=== PATIENT | female | born 1990 ===

== ENCOUNTER 2020-01-27 05:42 | Inpatient (IN) ==
--- NOTE | 2020-01-26 15:49 | History & Physical Report ---
Date of Service January 26, 2020 Assessment & Plan (1) : Repeat section. Reviewed consent. Questions answered. Discussed plans with Luis Garcia&Jamaica Wet Wheeler - adoptive parents will plan to room-in for baby. History of Present Illness Chief Complaint: repeat Primary Care Provider: SHERWIN PCP 30yo @ 39 08/12, repeat . H/o C/S x 2. 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 SAMUELS AND DR. PHAN OR DR. WOLFF ASSIST. Flu shot given 07/06/19 [facility] Allergies Allergy/AdvReac Type Severity Reaction Status Date / Time No Known Allergies Allergy Verified 01/26/20 15:30 Home Medications Home Medications Medication Instructions Recorded Confirmed Type prenat.vits,swapnil,izl-[id number]-rdoja 1 tab PO BID 06/29/19 01/26/20 History valacyclovir 500 mg tablet 500 mg PO DAILY #30 tab 01/09/20 01/26/20 Rx Patient History Medical History History of anxiety History of chicken pox History of depression Hx of cold sores Restless leg syndrome DURING Scoliosis "SLIGHT" Surgical History S/P section X 2 () Family History Father Heart disease Hypertension Aunt Breast cancer Social History Smoking Status: Former smoker Second Hand Exposure: No; Hx Alcohol Use: No Hx Substance Use: No Preferred Language: Japanese Parts Person Required: No Beliefs That Will Affect Care: None marital status: Single marital status details: Maurilio Lopez (28) [phone] Current Living Situation: Family Current Living Situation Comment: lives with 2 sons, sister, cats-sister changing litter, patient to wear tee current occupational status: employed current occupation: [employer] Feels Safe at Home: Yes Review of Systems All systems reviewed & are unremarkable except as noted in HPI & below Physical Exam Constitutional: WD/WN, vitals as above Respiratory: normal respiratory effort, lungs clear to auscultation no respiratory distress Cardiovascular: Rate/Rhythm: regular rate and regular rhythm Gastrointestinal (Abdomen): Inspection/Auscultation: abdomen normal to inspection Percussion/Palpation: abdomen soft; abdomen nontender Gravid. No s/s chorio or abruption. Skin: no rashes, warm and dry Psychiatric: A+Ox3, euthymic affect Coding Level of Care Code None Diagnoses Z34.90
[~2020-01-27 05:42] MED LIST: CITRIC ACID/SODIUM CITRATE 15 ML UDC PO ONE; LACTATED RINGER'S 1,000 ML IV ONE
[2020-01-27] MEDS ORDERED: LACTATED RINGER'S 1,000 ML IV SCH ×2 (06:00→09:26)
[2020-01-27] MEDS ORDERED: CEFAZOLIN 2000MG 2,000 MG/15 ML SYR IV SCH (06:00)
[2020-01-27 06:10] LABS: Basophils # (auto) 0.01 K/uL (0-0.2); Basophils % (auto) 0.1 %; Eosinophils # (auto) 0.24 K/uL (0-0.5); Eosinophils % (auto) 2.9 %; Hemoglobin 10.9 g/dL (12.0-16.0); Immature Granulocytes # (auto) 0.07 K/uL (0.00-0.02); Immature Granulocytes % (auto) 0.9 %; Lymphocytes # (auto) 2.08 K/uL (1.2-3.4); Lymphocytes % (auto) 25.3 %; Mean Corpuscular Hemoglobin 26.5 pg (25-34); Mean Corpuscular Volume 82.5 fL (80-100); Mean Platelet Volume 9.3 fL (7.4-10.4); Monocytes # (auto) 0.71 K/uL (0.11-0.59); Monocytes % (auto) 8.6 %; Neutrophils % (auto) 62.2 %; Platelet Count 302 K/uL (130-400); RDW Coefficient of Variation 14.5 % (11.5-14.5); RDW Standard Deviation 43.4 fL (36.4-46.3); Red Blood Count 4.12 M/uL (4.2-5.4); White Blood Count 8.21 K/uL (4.8-10.8)
[2020-01-27 06:17] LABS: Mean Corpuscular Hgb Conc 32.1 g/dL (32-36)
--- NOTE | 2020-01-27 07:23 | Anesthesiology Consultation ---
Date of Service January 27, 2020 Assessment & Plan Chart Review Chart Review: Acceptable Risk for Surgery and Patient NOT seen in Pre Admission Testing Consults Requested none ASA ASA2 Proposed Anesthesia Anesthesia Type: Labor Epidural Risk / Benefits Reviewed With: PT / POA / Parent / Guardian, Accepts Plan and Informed Consent Obtained Additional Comments: covid test neg. History Surgery Operation Date: 01/27/20 07:30 Proposed Procedures p Section in - Krissy Samuels, Height/Weight Height: 5 ft 3 in Weight: 86.636 kg Allergies Allergy/AdvReac Type Severity Reaction Status Date / Time No Known Allergies Allergy Verified 01/26/20 15:30 Medications Home Medications Medication Instructions Recorded Confirmed Last Taken prenat.vits,swapnil,udz-nqnj-bqlcw 1 tab PO BID 06/29/19 01/26/20 Unknown valacyclovir 500 mg tablet 500 mg PO DAILY #30 tab 01/09/20 01/26/20 Unknown Active Medications Generic Name Dose Route Start Last Admin Trade Name Freq PRN Reason Stop Dose Admin Lactated Ringer's 1,000 mls @ 125 mls/hr 01/27/20 06:00 01/27/20 06:22 Lr IV 01/27/20 13:59 999 mls/hr .Q8H FABIO Administration NPO Date Last Intake of Fluids: 01/27/20 Time Last Intake of Fluids: 23:30 Date Last Intake of Solids: 01/27/20 Time Last Intake of Solids: 21:30 Past Medical History Medical History History of anxiety History of chicken pox History of depression Hx of cold sores Restless leg syndrome DURING Scoliosis "SLIGHT" Exercise / Class Metabolic Activity II 4-5 Yardwork/Stairs/Walk up hill Past Family History Family History Father Heart disease Hypertension Aunt Breast cancer Past Surgical History Surgical History S/P section X 2 () Past Anesthesia History No Hx of Anesthesia Complications and No Family Hx of Anesthesia Complications History of PONV No Hx of PONV and No Hx of Motion Sickness Social History Smoking Status: Never smoker tobacco type: cigarettes Do You Dip or Chew Tobacco: No Smoking End Date: 2018 FOR 1 YEAR (MINIMAL USE) Hx Alcohol Use: No Hx Substance Use: No Physical Exam Vital Signs Last Vital Signs Temp 36.5 C 01/27/20 05:50 Pulse 73 01/27/20 07:01 Resp 18 01/27/20 05:50 BP 106/65 01/27/20 07:01 Constitutional + obese ENMT Mouth: no dentition abnormality Thyromental Distance: < 3.5 Finger Breadths Mallampati Class: II Neck normal visual inspection and trachea midline; neck extension not limited Respiratory normal respiratory effort Auscultation: lungs clear to auscultation bilaterally Cardiovascular Rate/Rhythm: regular rate and regular rhythm Heart Sounds: no murmur Vessels: no carotid bruit Musculoskeletal Spine: + scoliosis; normal cervical ROM Neurologic moves all extremities Motor/Sensory: no sensory deficit Psychiatric Orientation: alert and oriented x 3 Testing Laboratory Results 01/27/20 05:56 Blood Type O Positive 01/27/20 05:56 Antibody Screen NEGATIVE 01/27/20 05:56
[2020-01-27] MEDS ORDERED: OXYTOCIN 10 UNITS/ML VIAL ONE ×2 (07:26→08:15)
[2020-01-27] MEDS ORDERED: fentaNYL citrate 100 MCG/2 ML VIAL ONE (07:28)
[2020-01-27] MEDS ORDERED: MoRPHine SULFATE PF 1 MG/ML 10 ML AMP/VIAL ONE (07:28)
--- NOTE | 2020-01-27 07:29 | History & Physical Bridge Note ---
Date of Service January 27, 2020 History & Physical Bridge Note I have examined the patient, reviewed the History & Physical and in the interval since the performance of the History & Physical I have noted the following changes of clinical significance: no changes noted
[2020-01-27] MEDS ORDERED: PHENYLEPHRINE 100MCG/ML 5ML SYR ONE (08:13)
[2020-01-27 08:38] LABS: Base Excess Cord Arterial Bld -1.6 mEq/L (-9-1.8); CO2 Cord Arterial Blood 56 mmHg (39.1-73.5); HCO3 Cord Arterial Blood 26 mmol/L (19.7-28.5); PO2 Cord Arterial Blood 21 mmHg (4.1-31.7); pH Cord Arterial Blood 7.28 (7.1-7.38)
[2020-01-27 08:42] LABS: Base Excess Cord Venous Blood -1.5 mEq/L (-7.7-1.9); Cord Venous Blood HCO3 24 mmol/L (18.4-26.8); Cord Venous Blood PCO2 43 mmHg (30.4-57.2); Cord Venous Blood PO2 37 mmHg (14.1-43.3); Cord Venous Blood pH 7.36 (7.20-7.44); O2 Saturation Cord Venous Bld 74.2 % (<68)
[2020-01-27 08:46] LABS: Oxygen Sat Cord Arterial Blood < 60.0 % (<60)
--- NOTE | 2020-01-27 08:50 | Operative Report ---
PG Post Operative Report Pre & Post Diagnosis Operation Date: 01/27/20 07:30 Pre-Op Diagnosis: 1. History of x 2. Post-Op Diagnosis: 1. Same I identified the patient and participated in the time-out.: Yes Procedure Operation Date: 01/27/20 07:30 Actual Procedures p Repeat low transverse Section in LD; Repeat Lower Uterine Transverse for the of a Live Girl at 0808(Bilateral) - Krissy Samuels DO Surgeon Krissy Samuels DO Technology Solutions Architect Macario Ramirez MD Estimated Blood Loss 700 Findings Consistent with Post-Op Diagnosis Viable female , Apgars 9/9. Weight pending, please see nursery records. Specimens placenta, cord gas, cord blood Drains guerra clear yellow Anesthesia Type Spinal Complications none Disposition Accompanied Patient To Recovery: Yes Disposition: L&D Indications 30yo @ 39 3, h/o x 2. Description of Procedure The patient was seen in the preoperative holding area, where risks benefits and alternatives to surgery reviewed. She elected to proceed with the case. She had refused previously signed informed consent under no duress in the office. Questions were answered. She was taken to the operating room, spinal anesthesia was administered. She was then prepared and draped in the usual sterile fashion in the supine position with a leftward tilt. Timeout was confirmed. She had been given Ancef 2 g. The skin incision was made through the prior incision, Pfannenstiel. This was carried through to the underlying layer of fascia. This was nicked at midline, and the incision was extended bilaterally. The superior aspect of the fascial incision was grasped with Paul clamps x2, elevated off the underlying rectus abdominis muscles and dissected. The inferior aspect of the incision was dissected in a similar fashion. The rectus abdominis muscles were entered sharply, and this was bluntly and sharply. Peritoneum was part of the rectus muscles and we are in the peritoneal cavity at this time. The bladder flap was taken down sharply. A new scalpel was used to make a low transverse uterine incision. Membranes were ruptured for clear fluid. The was delivered from a cephalic presentation, nuchal cord x1 easily reduced. Spontaneous cry on the field. The cord was doubly clamped and cut, the baby was handed off to waiting developmental services worker. A cord segment was retained for cord gases. Cord blood was obtained. The placenta was delivered spontaneously intact. The uterus was exteriorized, and cleared of clots and debris. The hysterotomy was reapproximated using 0 Vicryl in a running locked stitch. A second layer of the same suture was used to imbricate the incision. Posterior uterus was evaluated and normal. The uterus was returned to the abdomen, 2-0 Vicryl was used in [id number] sutures along the hysterotomy to obtain excellent hemostasis. Gutters were cleared of clots and debris. Excellent hemostasis was observed. The fascial incision was reapproximated using 0 Vicryl in a running stitch. The subcutaneous tissue was irrigated, reapproximated with using 2-0 plain gut. The skin was reapproximated using 4-0 Vicryl in a subcuticular stitch. Instrument, sponge, needle counts were correct at the conclusion of the case. The patient tolerated the procedure well and was taken to her labor room to recover in stable condition. I attest to the content of the Intraoperative Record and any orders documented therein. Any exceptions are noted below.
[2020-01-27] MEDS ORDERED: PROMETHAZINE HCL 25 MG in SODIUM CHLORIDE 0.9% 50 ML IV PRN (08:52)
[2020-01-27] MEDS ORDERED: LACTATED RINGER'S 500 ML IV PRN (08:52)
[2020-01-27] MEDS ORDERED: MoRPHine SULFATE PF 1 MG/ML 10 ML AMP/VIAL INT SPINAL ONE (08:52)
[2020-01-27] MEDS ORDERED: NALOXONE HCL 0.4 MG/1 ML VIAL/CARP IV PRN (08:52)
[2020-01-27] MEDS ORDERED: NALOXONE HCL 0.08 MG in SYRINGE 1.8 ML IV PRN (08:52)
[2020-01-27] MEDS ORDERED: ePHEDrine sulfate 50 MG/ML AMP IV PRN (08:52)
[2020-01-27] MEDS ORDERED: NALOXONE HCL 1 MG in SODIUM CHLORIDE 0.9% 1000ML 1,000 ML IV PRN (08:52)
[2020-01-27] MEDS ORDERED: DiphenhydrAMINE HCL 50 MG/ML VIAL IV PRN (08:52)
[2020-01-27] MEDS ORDERED: NO NARCOTICS OR SEDATIVES SCH (09:00)
[2020-01-27] MEDS ORDERED: SODIUM CHLORIDE 0.9% 1000ML 1,000 ML IV SCH (09:00)
[2020-01-27] MEDS ORDERED: SENNA 8.6 MG TAB PO PRN (09:26)
[2020-01-27] MEDS ORDERED: SUPERCREAM 0.870% 15 GM JAR EXT PRN (09:26)
[2020-01-27] MEDS ORDERED: BENZOCAINE 20% AER SPR 82.5 GM CAN EXT PRN (09:26)
[2020-01-27] MEDS ORDERED: MAGNESIUM HYDROXIDE SUSP 30 ML UDC PO PRN (09:26)
[2020-01-27] MEDS ORDERED: HYDROCORTISONE ACETATE 25 MG SUPP PR PRN (09:26)
[2020-01-27] MEDS ORDERED: DIPHTHERIA/TETANUS/PERTUSSIS 0.5 ML SYR/VIAL IM ONE (09:26)
[2020-01-27] MEDS: ONDANSETRON INJ 2 MG/ML 2 ML VIAL IV PRN ×2 (09:42→19:46)
[2020-01-27] MEDS: KETOROLAC 30 MG/ML VIAL IV PRN ×2 (09:58→19:46)
[2020-01-27] MEDS: OXYTOCIN 30 UNITS in LACTATED RINGER'S 1,000 ML IV SCH ×2 (10:02→18:11)
--- NOTE | 2020-01-27 11:33 | Anesthesiology Progress Note ---
Date of Service January 27, 2020 Anesthesia Post Procedure Vital Signs Vital Signs: Temp Pulse Resp BP Pulse Ox 01/27/20 11:28 56 L 99 01/27/20 11:23 51 L 100 01/27/20 11:18 68 97 01/27/20 11:13 61 97 01/27/20 11:08 62 100 01/27/20 11:03 51 L 99 01/27/20 11:02 68 93/58 L 01/27/20 10:58 54 L 100 01/27/20 10:53 60 100 01/27/20 10:52 56 L 101/67 01/27/20 10:48 66 98 01/27/20 10:43 65 100 01/27/20 10:42 55 L 99/58 L 01/27/20 10:38 66 100 01/27/20 10:33 91 H 99 01/27/20 10:32 78 118/66 01/27/20 10:28 57 L 100 01/27/20 10:23 57 L 100 01/27/20 10:22 56 L 100/70 01/27/20 10:18 68 100 01/27/20 10:14 55 L 102/61 01/27/20 10:13 55 L 100 01/27/20 10:12 55 L 84/51 L 01/27/20 10:08 58 L 99 01/27/20 10:03 58 L 98 01/27/20 10:02 65 97/57 L 01/27/20 09:58 67 97 01/27/20 09:53 36.5 C 64 18 100 01/27/20 09:52 67 101/53 L 01/27/20 09:48 60 96 01/27/20 09:43 56 L 18 121/64 99 01/27/20 09:38 87 99 01/27/20 09:33 66 98 01/27/20 09:32 64 18 90/53 L 01/27/20 09:28 70 94 01/27/20 09:23 74 94 01/27/20 09:22 76 18 96/52 L 01/27/20 09:18 69 94 01/27/20 09:14 92 H 92 01/27/20 09:13 77 93/51 L 97 01/27/20 09:12 18 01/27/20 09:09 74 93 01/27/20 09:08 71 98 01/27/20 09:03 82 99 01/27/20 09:02 81 103/55 L 01/27/20 09:01 80 16 90 01/27/20 08:58 73 96 01/27/20 08:53 83 100 01/27/20 08:52 68 103/56 L 01/27/20 08:51 36.5 C 18 01/27/20 07:23 36.2 C L 18 01/27/20 07:01 73 106/65 01/27/20 05:50 36.5 C 18 01/27/20 05:49 88 117/69 Pain Intensity Lower Abdomen: Pain Intensity: 1 Transfer of Care Handoff Completed per policy Notes Mental Status: alert / awake / arousable and participated in evaluation Patient Amnestic to Procedure: Yes Nausea / Vomiting: adequately controlled Pain: adequately controlled Airway Patency, RR, SpO2: stable & adequate BP & HR: stable & adequate Hydration State: stable & adequate Neuraxial Anesthesia: was administered and sensory block is resolving Anesthetic Complications: no major complications apparent
[2020-01-27] MEDS: SIMETHICONE 80 MG CHEW PO SCH ×2 (18:51→19:45)
[2020-01-27] MEDS ORDERED: DOCUSATE SODIUM 100 MG CAP PO ONE (19:40)
[2020-01-27] MEDS: DOCUSATE SODIUM 100 MG CAP PO SCH (19:45)
[2020-01-28] MEDS ORDERED: PROMETHAZINE HCL 25 MG in SODIUM CHLORIDE 0.9% 50 ML IV PRN (02:52)
[2020-01-28] MEDS ORDERED: KETOROLAC 30 MG/ML VIAL IV PRN (02:52)
[2020-01-28] MEDS ORDERED: ONDANSETRON INJ 2 MG/ML 2 ML VIAL IV PRN (02:52)
[2020-01-28] MEDS ORDERED: DC INTRASPINAL MORPHINE SCH (02:52)
[2020-01-28] MEDS ORDERED: DiphenhydrAMINE HCL 50 MG/ML VIAL IV PRN (02:52)
--- NOTE | 2020-01-28 06:27 | Obstetrical Progress Note ---
Date of Service <Christine Nina DO - Last Filed: 01/28/20 08:24> January 28, 2020 Assessment & Plan <Christine Sterling Nina DO - Last Filed: 01/28/20 08:24> (1) Normal course: - PNL: Rh pos, Rubella NONIMMUNE, GBS neg, COVID neg - Pt to get MMR prior to d/c - B/l LE cramping pain. Will continue to monitor and b/l LE US ordered to r/o DVT. - H/H this AM 9.9/30.1. Will start patient on supplemental iron po daily - Pain well controlled with ibuprofen 600mg Q4H PRN - Routine care -- OOB, ambulation, diet progression as tolerated - After discharge will have 6 week follow-up with Dr. Samuels. - Plan for d/c home tomorrow Subjective <Christine Nina DO - Last Filed: 01/28/20 08:24> Josefa Chen is a 30 y/o female who is POD #1 following RLTCS at 39 3/7 weeks. She reports feeling well overall this morning. Some abdominal cramping and 3/10 pain well managed on analgesics. Pt has not yet voided independently as she still has the guerra catheter in place. She did have a small meal last night; there was some mild nausea but no associated vomiting. Pt has not yet been OOB to ambulate. She does report + flatus but no BM yet. Has persistent lochia with some improvement this morning. Currently . To note, patient also complains of some b/l leg cramping and pain; this started yesterday evening. The pain is described as stiffness and "panda horse sensations." Review of Systems Denies fever or chills. Denies shortness of breath or cough. Denies chest pain. Denies breast pain. + nausea. Denies dysuria. + leg pain. Denies leg swelling. Denies headache or changes in vision. Physical Exam <Christine Nina DO - Last Filed: 01/28/20 08:24> General: Alert, oriented. No acute distress. Cardiac: Regular rate and rhythm. No murmurs. Respiratory: Clear to auscultation bilaterally a/p, no wheezes/rales/rhonchi. No increased work of breathing. Symmetrical chest rise. No respiratory distress. Abdomen: Soft, nontender, nondistended. Bowel sounds present. Uterus: Uterine fundus firm, palpable 2 cm above umbilicus. Surgical scar clean and healing well. Lower Extremities: No lower extremity edema or swelling. + deep calf pain to palpation, R>L. Results & Data ([facility]) <Christine Nina, - Last Filed: 01/28/20 08:24> Vital Signs (Past 12 Hours) Vital Signs Temp Pulse Resp BP Pulse Ox 01/28/20 05:00 36.7 C 65 18 102/66 96 01/28/20 03:00 18 96 01/28/20 02:00 18 97 01/28/20 01:00 18 96 01/28/20 00:05 36.7 C 73 18 108/69 97 01/28/20 00:00 18 97 01/27/20 23:00 18 97 01/27/20 22:00 18 98 01/27/20 21:00 18 99 01/27/20 20:00 18 99 01/27/20 19:45 36.6 C 18 116/78 99 01/27/20 19:00 18 99 Laboratory Results H/H at 0621 this mornin.9/30.1 <Krissy Samuels, - Last Filed: 01/28/20 08:17> Co-Signing Physician Notes Resident Physician Supervision Note: I was present with Dr. Nina during the history and exam. I discussed the case with the resident and agree with the findings and plan as documented in the note. Any exceptions or clarifications are listed here: POD#1. Doing well. Complains of bilateral leg pain. Exam benign, but given localization to calves and state, will obtain dopplers to r/o DVT. Documented By: Krissy Samuels DO
[2020-01-28] MEDS: IBUPROFEN 600 MG TAB PO PRN ×3 (06:42→19:50)
[2020-01-28] MEDS: OXYCODONE/ACETAMINOPHEN 5mg/325mg TAB PO PRN ×3 (06:42→19:49)
[2020-01-28 07:04] LABS: Basophils # (auto) 0.01 K/uL (0-0.2); Basophils % (auto) 0.1 %; Eosinophils # (auto) 0.26 K/uL (0-0.5); Eosinophils % (auto) 2.4 %; Hematocrit (blood only) 30.1 % (37-47); Hemoglobin 9.9 g/dL (12.0-16.0); Immature Granulocytes # (auto) 0.04 K/uL (0.00-0.02); Immature Granulocytes % (auto) 0.4 %; Lymphocytes # (auto) 1.99 K/uL (1.2-3.4); Lymphocytes % (auto) 18.4 %; Mean Corpuscular Hemoglobin 27.3 pg (25-34); Mean Corpuscular Hgb Conc 32.9 g/dL (32-36); Mean Corpuscular Volume 83.1 fL (80-100); Mean Platelet Volume 9.8 fL (7.4-10.4); Monocytes # (auto) 0.88 K/uL (0.11-0.59); Monocytes % (auto) 8.2 %; Neutrophils # (auto) 7.61 K/uL (1.4-6.5); Neutrophils % (auto) 70.5 %; Platelet Count 252 K/uL (130-400); RDW Coefficient of Variation 14.8 % (11.5-14.5); Red Blood Count 3.62 M/uL (4.2-5.4); White Blood Count 10.79 K/uL (4.8-10.8)
[2020-01-28] MEDS ORDERED: FERROUS SULFATE 325 MG TAB PO SCH (08:00)
--- NOTE | 2020-01-28 08:37 | Ultrasound Report ---
BILATERAL LOWER EXTREMITY VENOUS DOPPLER CLINICAL HISTORY: b/l calf pain and cramping s/p yesterday COMPARISON STUDY: No previous studies for comparison. TECHNIQUE: Sonography of the deep venous system of the bilateral lower extremities was performed. Co mpression and augmentation were evaluated. FINDINGS: The bilateral common femoral, superficial femoral and popliteal veins were compressible. A ugmentation was normal. Flow was shown within the deep calf vessels. IMPRESSION: No evidence of deep venous thrombus within the bilateral lower extremities. ACT 112: Negative or not required by law. Electronically signed by: Dane Day M.D. 01/28/2020 8:35 AM
--- NOTE | 2020-01-28 08:43 | Communication Note ---
Date of Service: January 28, 2020 No c/o H/A. No c/o LE weakness or paresthesias. Pt up and ambulating.
[2020-01-28] MEDS: DOCUSATE SODIUM 100 MG CAP PO SCH ×2 (08:50→21:18)
[2020-01-28] MEDS: PRENATAL VITAMIN 1 TAB PO SCH (08:50)
[2020-01-28] MEDS: FERROUS SULFATE 325 MG TAB PO SCH (08:50)
[2020-01-28] MEDS: SIMETHICONE 80 MG CHEW PO SCH ×3 (08:50→21:17)
[2020-01-28] MEDS ORDERED: bisacodyL 5 MG TABEC PO SCH (20:00)
[2020-01-29] MEDS: IBUPROFEN 600 MG TAB PO PRN ×2 (06:15→12:16)
[2020-01-29 06:41] LABS: Hematocrit (blood only) 30.4 % (37-47); Hemoglobin 9.9 g/dL (12.0-16.0)
--- NOTE | 2020-01-29 08:38 | Obstetrical Progress Note ---
Date of Service January 29, 2020 Postoperative day #2 the patient is doing well ambulating tolerating oral diet her extremity pain has stopped and reviewed reviewed her negative Doppler studies bleeding is minimal patient wishes to go home Assessment & Plan (1) Previous delivery affecting : Postoperative from section patient meets discharge criteria as she is ambulating well tolerating an oral diet has minimal bleeding and no extremity pain. Discharge instructions were reviewed and prescriptions were sent to her pharmacy of choice patient advised to call with any concerns and follow-up in the office discussed Physical Exam Constitutional WD/WN, vitals as above Gastrointestinal (Abdomen) normal bowel sounds, soft, nontender, no hepatosplenomegaly (Incision clean dry and intact extremity exam negative) Results & Data ([facility]) Vital Signs (Past 12 Hours) Vital Signs Temp Pulse Resp BP 01/28/20 23:50 98.1 F 60 18 104/70
[2020-01-29] MEDS: PRENATAL VITAMIN 1 TAB PO SCH (08:42)
[2020-01-29] MEDS: DOCUSATE SODIUM 100 MG CAP PO SCH (08:42)
[2020-01-29] MEDS: SIMETHICONE 80 MG CHEW PO SCH ×2 (08:43→12:16)
[2020-01-29] MEDS: FERROUS SULFATE 325 MG TAB PO SCH (08:45)
[2020-01-29] MEDS ORDERED: bisacodyL 10 MG SUPP PR PRN (08:53)
[2020-01-29] MEDS ORDERED: MEASLES, MUMPS & RUBELLA VIRUS VIAL SQ ONE (09:12)
[2020-01-29] MEDS: OXYCODONE/ACETAMINOPHEN 5mg/325mg TAB PO PRN (12:17)
--- NOTE | 2020-02-01 00:01 | Discharge Summary ---
Date of Service February 01, 2020 Admission HPI Per Admitting Provider 30yo @ 39 08/12, repeat . H/o C/S x 2. 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 SAMUELS AND DR. PHAN OR DR. WOLFF ASSIST. Flu shot given 07/06/19 [facility] Discharge Data Consultations 01/27/20 05:36 Consult Anesthesiology Stat Procedures Performed Operation Date: 01/27/20 07:30 Actual Procedures p Section in LD; Repeat Lower Uterine Transverse for the of a Live Girl at 0808(Bilateral) - Krissy Samuels DO Hospital Course (1) Encounter for supervision of normal in multigravida, antepartum: Admitted after scheduled repeat section. Uneventful recovery. Discharged home Postop day 2. Followup in office in 6 weeks. Coding Level of Care Code None Diagnoses Encounter for supervision of normal in multigravida, antepartum Z34.80
== END 2020-01-29 14:45 | disposition home or self-care (01) | DRG 787 ==
LOC: 4S1 05:42 → EDSTATUS 07:30 → 4S2 13:24